=== PATIENT | female | born 1960 | race Caucasian/White ===

== ENCOUNTER 2019-12-08 09:30 | Outpatient (CLI) | payer OTHER, SELFPAY ==
--- NOTE | ~2019-12-08 | MM_ITS ---
EXAMINATION: MM screening lisset BI w salud HISTORY: Screening TECHNIQUE: Craniocaudal and mediolateral oblique 3-D tomosynthesis images were obtained and synthetic 2-D images were generated. CAD analysis was submitted and interpreted. COMPARISON: Comparison to multiple prior studies sequentially, with oldest reviewed study dated 04/2014. BREAST PARENCHYMAL COMPOSITION: The breasts are heterogeneously dense, which may obscure small masses . FINDINGS: There is no evidence of suspicious mass, calcification, or architectural distortion to sugg est malignancy in either breast. There has been no suspicious interval change. IMPRESSION: 1. No mammographic evidence of malignancy. 2. Recommend routine screening mammography in one year. BI-RADS Category 1: Negative Reviewed, dictated and finalized at location A.
== END 2019-12-08 09:31 | disposition home or self-care (01) ==
PROVIDERS: PCP Obstetrics & Gynecology; Visit Provider Obstetrics & Gynecology
DX: Z12.31 Encounter for screening mammogram for malignant neoplasm of breast (principal)
CPT/HCPCS: 77063; 77067

== ENCOUNTER 2020-01-08 06:59 | Outpatient (CLI) | payer OTHER, SELFPAY ==
[2020-01-08 07:37] LABS: Hematocrit 42.4 % (37.0-47.0); Mean Platelet Volume 9.8 fl (7.4-10.4); Platelet Count Result 255 k/mm3 (150-375); Red Blood Count 4.51 M/mm3 (4.2-5.4); Red Cell Distribution Width 12.6 % (11.5-14.5); White Blood Count 4.8 K/mm3 (4.5-10.0)
[2020-01-08 07:46] LABS: Alanine Aminotransferase 19 U/L (4-35); Albumin Level 4.6 g/dL (3.5-5.1); Alkaline Phosphatase 77 U/L (38-126); Anion Gap 7 mmol/L (8-16); Aspartate Amino Transferase 28 U/L (14-36); Bilirubin,Total 0.5 mg/dL (0.2-1.3); Blood Urea Nitrogen 13 mg/dL (7-17); Calcium 9.3 mg/dL (8.4-10.2); Carbon Dioxide 33 mmol/L (22-30); Chloride 103 mmol/L (98-107); Cholesterol 217 mg/dL (0-200); Estimated Glomerular Filt Rate > 60; Glucose 98 mg/dL (65-105); HDL Direct 106 mg/dL; Potassium 4.1 mmol/L (3.4-5.0); Sodium 143 mmol/L (137-145); Triglycerides 65 mg/dL (<150)
[2020-01-08 07:57] LABS: LDL Cholesterol Direct 87 mg/dL
[2020-01-14 08:24] LABS: FSH 116.9 mIU/mL (***); LH 32.7 mIU/mL (***)
[2020-01-14 18:43] LABS: Estradiol, Ultrasensitive 6 pg/mL
== END 2020-01-08 07:00 | disposition home or self-care (01) ==
LOC: ANHLAB 07:01
PROVIDERS: PCP Obstetrics & Gynecology; Visit Provider Obstetrics & Gynecology
DX: N95.1 Menopausal and female climacteric states (principal)
CPT/HCPCS: 36415; 80053; 80061; 82306; 82670; 83001; 83002; 84443; 85027

== ENCOUNTER 2020-09-24 11:27 | Emergency (ER) | payer OTHER, SELFPAY ==
[2020-09-24 11:37] VITALS: BP 140/65; PULSE 80; RESP 16; TEMP 36.2; O2SAT 100
--- NOTE | 2020-09-24 13:10 | ED.EYEPROB ---
HPI - Eye Problem General Chief complaint: Eye Problems Stated complaint: something in eye Time Seen by Provider: 09/24/20 12:14 Source: patient Mode of arrival: ambulatory Limitations: no limitations History of Present Illness HPI Narrative: 59-year-old female Has been backing stuff up and getting ready to move and thinks she got something in her left eye There is a foreign body sensation and tearing and a little injection and it was resistant to her efforts to irrigate it out at home No visual disturbance Related Data Allergies Allergy/AdvReac Type Severity Reaction Status Date / Time No Known Allergies Allergy Mild Verified 09/24/20 11:36 Review of Systems Eyes: Eyes: Reports no additional eye complaints, Denies change in vision and Reports photophobia ENT: Denies epistaxis and Denies nasal congestion Allergic/Immunologic: Allergic/Immunologic: Denies lip swelling, Denies throat swelling and Denies tongue swelling PMF Family History Family History (Updated 12/02/13 @ 07:13 by DOCTOR UNKNOWN) Father Hypertension Other Cerebrovascular accident Social History Social History (Updated 02/10/20 @ 14:21 by Tiffany Mccoy) Smoking status: Former smoker Alcohol intake: current Gender identity (if verbalized by the patient): Female Exam Const: General: alert Orientation/consciousness: patient oriented x3 HENMT: Head: normal to inspection Eyes: Pupils: Equal, round and reactive pupils present Other: Mild injection left conjunctiva Fluorescein staining is negative There is a tiny foreign body found under the upper lid when it was everted that was removed with a cotton swab and she reported feeling more comfortable after that Resp: Effort & Inspection: normal respiratory effort and not labored Neuro: General: patient oriented x3 Speech: normal speech Course Vital Signs Vital signs: Vital Signs Temperature 36.2 C L 09/24/20 11:37 Pulse Rate 80 09/24/20 11:37 Respiratory Rate 16 09/24/20 11:37 Blood Pressure 140/65 09/24/20 11:37 Pulse Oximetry 100 09/24/20 11:37 Temperature 36.2 C L 09/24/20 11:37 Pulse Rate 80 09/24/20 11:37 Respiratory Rate 16 09/24/20 11:37 Blood Pressure 140/65 09/24/20 11:37 Pulse Oximetry 100 09/24/20 11:37 Discharge Plan Discharge Clinical Impression: Foreign body of conjunctiva, left Patient Disposition: Home, Self-Care Condition: Stable Instructions: Eye Foreign Body (ED) Additional Instructions: He is antibiotic ointment if there is any persistent redness or irritation after a couple of hours Follow with your service coordinator elderly facility if needed for persistent symptoms Prescriptions: New erythromycin 5 mg/gram (0.5 %) ointment 1 applic LEFT EYE TID Qty: 1 RF: 0 Follow-up/Referrals: Ab Tamez MD [Primary Care Provider] -
[2020-09-24 13:37] VITALS: BP 128/83; PULSE 69; RESP 18; O2SAT 100
== END 2020-09-24 13:30 | disposition home or self-care (01) ==
PROVIDERS: Emergency Provider Emergency Medicine; PCP Obstetrics & Gynecology
DX: T15.12XA Foreign body in conjunctival sac, left eye, initial encounter (principal); Z87.891 Personal history of nicotine dependence
CPT/HCPCS: 65205; 99283; A9270

== ENCOUNTER 2021-01-18 08:34 | Outpatient (CLI) | payer OTHER, SELFPAY ==
--- NOTE | ~2021-01-18 | MM_ITS ---
EXAMINATION: MM screening lisset BI w salud HISTORY: Screening TECHNIQUE: Craniocaudal and mediolateral oblique 3-D tomosynthesis images were obtained and synthetic 2-D images were generated. CAD analysis was submitted and interpreted. COMPARISON: Comparison to multiple prior studies sequentially, with oldest reviewed study dated 10/24. BREAST PARENCHYMAL COMPOSITION: The breasts are heterogeneously dense, which may obscure small masses . FINDINGS: There is no evidence of suspicious mass, calcification, or architectural distortion to sugg est malignancy in either breast. There has been no suspicious interval change. IMPRESSION: 1. No mammographic evidence of malignancy. 2. Recommend routine screening mammography in one year. BI-RADS Category 1: Negative Reviewed, dictated and finalized at location A.
== END 2021-01-18 08:35 | disposition home or self-care (01) ==
PROVIDERS: PCP Obstetrics & Gynecology; Visit Provider Obstetrics & Gynecology
DX: Z12.31 Encounter for screening mammogram for malignant neoplasm of breast (principal)
CPT/HCPCS: 77063; 77067

== ENCOUNTER 2021-02-16 07:21 | Outpatient (CLI) | payer OTHER, SELFPAY ==
[2021-02-16 19:41] LABS: Hematocrit 44.4 % (37.0-47.0); Hemoglobin 14.4 g/dL (12.0-15.0); Mean Corpuscular HGB Conc 32.4 g/dl (32-36); Mean Corpuscular Hemoglobin 32.4 pg (26-34); Mean Corpuscular Volume 99.8 fl (80-100); Mean Platelet Volume 10.6 fl (7.4-10.4); Platelet Count Result 250 k/mm3 (150-375); Red Blood Count 4.45 M/mm3 (4.2-5.4); Red Cell Distribution Width 12.8 % (11.5-14.5); White Blood Count 5.8 K/mm3 (4.5-10.0)
[2021-02-16 19:56] LABS: Alanine Aminotransferase 19 U/L (4-35); Albumin Level 4.6 g/dL (3.5-5.1); Alkaline Phosphatase 82 U/L (38-126); Anion Gap 5 mmol/L (8-16); Aspartate Amino Transferase 30 U/L (14-36); Bilirubin,Total 0.6 mg/dL (0.2-1.3); Blood Urea Nitrogen 15 mg/dL (7-17); Calcium 9.9 mg/dL (8.4-10.2); Carbon Dioxide 33 mmol/L (22-30); Chloride 103 mmol/L (98-107); Cholesterol 227 mg/dL (0-200); Estimated Glomerular Filt Rate > 60; Glucose 109 mg/dL (65-110); Potassium 4.5 mmol/L (3.4-5.0); Sodium 141 mmol/L (137-145); Triglycerides 68 mg/dL (<150)
[2021-02-16 20:00] LABS: LDL Cholesterol Direct 92 mg/dL
[2021-02-16 20:04] LABS: Vitamin D 25 Hydroxy 75.1 ng/mL
[2021-02-16 20:41] LABS: HDL Direct 130 mg/dL
== END 2021-02-16 07:22 | disposition home or self-care (01) ==
LOC: ANHASCLAB 07:26
PROVIDERS: PCP Obstetrics & Gynecology; Visit Provider Obstetrics & Gynecology
DX: N95.1 Menopausal and female climacteric states (principal)
CPT/HCPCS: 36415; 80053; 80061; 82306; 84443; 85014; 85018; 85027

== ENCOUNTER 2022-02-01 07:02 | Outpatient (CLI) | payer OTHER, SELFPAY ==
[2022-02-01 19:40] LABS: Hematocrit 45.5 % (37.0-47.0); Hemoglobin 14.1 g/dL (12.0-15.0); Mean Corpuscular Hemoglobin 31.1 pg (26-34); Mean Corpuscular Volume 100.4 fl (80-100); Mean Platelet Volume 10.2 fl (7.4-10.4); Platelet Count Result 268 k/mm3 (150-375); Red Blood Count 4.53 M/mm3 (4.2-5.4); Red Cell Distribution Width 13.2 % (11.5-14.5); White Blood Count 6.3 K/mm3 (4.5-10.0)
[2022-02-01 19:47] LABS: Alanine Aminotransferase 29 U/L (6-35); Albumin Level 4.6 g/dL (3.5-5.1); Alkaline Phosphatase 90 U/L (38-126); Anion Gap 10 mmol/L (8-16); Aspartate Amino Transferase 40 U/L (14-36); Bilirubin,Total 0.8 mg/dL (0.2-1.3); Blood Urea Nitrogen 12 mg/dL (7-17); Calcium 9.1 mg/dL (8.4-10.2); Carbon Dioxide 29 mmol/L (22-30); Chloride 102 mmol/L (98-107); Cholesterol 242 mg/dL (0-200); Estimated Glomerular Filt Rate > 60; Glucose 94 mg/dL (65-110); HDL Direct 99 mg/dL; Potassium 4.3 mmol/L (3.4-5.0); Sodium 141 mmol/L (137-145); Triglycerides 73 mg/dL (<150)
[2022-02-01 19:58] LABS: LDL Cholesterol Direct 112 mg/dL
[2022-02-01 20:03] LABS: Vitamin D 25 Hydroxy 52.4 ng/mL
[2022-02-06 19:17] LABS: FSH 135.4 mIU/mL (***); LH 32.6 mIU/mL (***)
[2022-02-07 22:11] LABS: Estradiol, Ultrasensitive 3 pg/mL
== END 2022-02-01 07:03 | disposition home or self-care (01) ==
LOC: ANHASCLAB 07:04
PROVIDERS: PCP Obstetrics & Gynecology; Visit Provider Obstetrics & Gynecology
DX: N95.1 Menopausal and female climacteric states (principal)
CPT/HCPCS: 36415; 80053; 80061; 82306; 82607; 82670; 83001; 83002; 84443; 85027

== ENCOUNTER 2022-02-14 15:38 | Outpatient (CLI) | payer OTHER, SELFPAY ==
--- NOTE | ~2022-02-14 | MM_ITS ---
EXAMINATION: MM screening lisset BI w salud HISTORY: Screening mammogram TECHNIQUE: Craniocaudal and mediolateral oblique 3-D tomosynthesis images were obtained and synthetic 2-D images were generated. CAD analysis was submitted and interpreted. COMPARISON: 01/18/2021, 12/08/2019, 12/02/2018 bilateral screening mammogram examinations BREAST PARENCHYMAL COMPOSITION: There are scattered areas of fibroglandular density.... FINDINGS: There is no evidence of suspicious mass, calcification, or architectural distortion to sugg est malignancy in either breast. There has been no suspicious interval change. IMPRESSION: 1. No mammographic evidence of malignancy. 2. Recommend routine screening mammography in one year. BI-RADS Category 1: Negative Reviewed, dictated and finalized at location A. TECHNICIAN
== END 2022-02-14 15:39 | disposition home or self-care (01) ==
PROVIDERS: PCP Obstetrics & Gynecology; Visit Provider Obstetrics & Gynecology
DX: Z12.31 Encounter for screening mammogram for malignant neoplasm of breast (principal)
CPT/HCPCS: 77063; 77067

== ENCOUNTER 2022-06-05 00:28 | Day surgery (SDC) | payer OTHER, SELFPAY ==
[2022-05-27 15:38] VITALS: BMI 19.4
--- NOTE | 2022-05-27 15:44 | PC.NURSE ---
Report to the Outpatient Waiting Room, entrance under the green pavilion located off [facility], at time 0730 on date 06/05/22. Planned Procedure Time: 0830. Time changes happen often and if your time is changed the preop area will call you the afternoon before. - You and your visitor will be asked to self-screen and do not enter if you have any COVID symptoms. - Only one visitor is requested with a max of two and NO children visitors are allowed at this time. - The patient visitor may be requested to leave or wait in car when not with patient due to distancing restrictions. - A mask is optional within the hospital at this time. Patients may have LIGHT BREAKFAST Take the following medications with a SIP of water the morning of surgery: USUAL DO NOT STOP ANY OF YOUR OTHER PRESCRIPTION MEDICATIONS PRIOR TO SURGERY EXCEPT THE FOLLOWING Medications to discontinue per physician: N/A Date to take last dose: N/A Please no make-up, nail lithuanian, hairspray, perfume, deodorant, or body powder the day of surgery. No jewelry (including any body piercings) or valuables the day of surgery, leave them at home. Please take a shower or bath the night before, or the morning of, surgery with an antibacterial soap. Wear comfortable, loose fitting clothing. - Jewelry must be removed prior to entering the operating room. Rings and piercings that are not removed may be cut off. - The hospital will not accept responsibility for valuables. - Please leave all valuables, including medications, at home the day of surgery. YOU MAY DRIVE YOURSELF HOME AFTER SURGERY. For Pediatric surgeries, we recommend two adults accompany the child home. Follow any additional instructions given to you from your surgeon. If you or anyone in your household have experienced Covid symptoms in the past week, please notify your surgeon or the nurse liaison at the phone number below for possible testing. Telephone instructions given to PT - JANAE SALAZAR and asked if any additional questions and then verbalized understanding. Patient advised to call surgeon office or pre surgery nurse liaison [phone] if any additional questions.
[2022-06-05] VITALS (8 sets, daily range): BP systolic 114–143; BP diastolic 64–81; PULSE 73–88; RESP 16–18; TEMP 37.1; O2SAT 99–100
[2022-06-05] MEDS: LIDO 1%/EPINEPHRINE 1:100,000 20 ML VIAL 5 ML INFILTRATE (07:23)
--- NOTE | 2022-06-05 07:43 | WPDHPUPDATE1 ---
History and Physical Update Update Date/Time: 06/05/22 07:43 History and Physical has been reviewed, including an updated exam of the patient. There are NO changes in the patient's condition. Risks, benefits, and alternatives have been discussed and questions answered. Patient agrees to proceed with procedure.
--- NOTE | 2022-06-05 08:14 | SUR.OPER ---
Frozen section specimen sent with MARY KAY Dobson and received in pathology by Zelda
[2022-06-05] MEDS: BACITRACIN OINTMENT 15 GM TUBE 1 APPLIC TOPICAL (08:48)
--- NOTE | 2022-06-05 08:57 | W.PM.PROC2 ---
Procedure Note - Detailed Date of Procedure 06/05/22 Pre-op Diagnosis Basal Cell Ca Left Scapha Post-op Diagnosis Same Procedure Performed 1 cm excision of BCC left scapha with FS and intermediate repair 1.5 cm. Surgeon Robin Martinez MD Anesthesia Local Indications BCC on biopsy. Findings Margins free. Description of Procedure The site of the biopsy the on the patient's left scaphoid fossa was marked with her consent in the holding area. She was taken to the operating room where she is placed supine on the operating table. Time-out was held and confirmed. Left side of her face and ear were prepped and draped in usual fashion. This area was carefully examined for the extent of any residual tumor. The marking was made as an ellipse surrounding the biopsy site, paralleling the axis of the helix. The area was infiltrated with 1% lidocaine with epinephrine. The ellipse was taken with a 15. C blade along the rim of the helix and extending approximately 5 mm across the scaphoid fossa. The tissue was taken off the cartilage with a 15 C blade. The cephalad tip was marked with a suture for 12:00 o'clock. The specimen was sent to pathology for frozen section. The pathologist revealed that there was no residual basal cell carcinoma but there was evidence of inflammation. The closure was accomplished by undermining the skin 6 mm over the scaphoid fossa. On the helix, skin was also elevated off the cartilage 4 mm. It appeared the skin would approximate easily. There was no need for cartilage removal. The skin was tailored to prevent any overlap. We were able to advance the skin from both sides and close with interrupted 6 0 nylon. The site was dressed with bacitracin ointment only. The patient discharged without prescriptions. Estimated Blood Loss 1 Drains No Packing No Pathology Yes Complications No immediate complications Condition Stable Disposition Same day
== END 2022-06-05 09:06 | disposition home or self-care (01) ==
PROVIDERS: Visit Provider Plastic Surgery
PROC: (CPT 11641; principal; 2022-06-05 07:30)
DX: C44.219 Basal cell carcinoma of skin of left ear and external auricular canal (principal)
CPT/HCPCS: 11641; 12051; 88305; 88331; A9270

== ENCOUNTER 2023-02-14 07:02 | Outpatient (CLI) | payer OTHER, SELFPAY ==
[2023-02-14 18:31] LABS: Hematocrit 48.1 % (37.0-47.0); Hemoglobin 15.4 g/dL (12.0-15.0); Mean Corpuscular Hemoglobin 31.3 pg (26-34); Mean Corpuscular Volume 97.8 fl (80-100); Mean Platelet Volume 10.6 fl (7.4-10.4); Platelet Count Result 256 k/mm3 (150-375); Red Blood Count 4.92 M/mm3 (4.2-5.4); Red Cell Distribution Width 12.8 % (11.5-14.5); White Blood Count 5.5 K/mm3 (4.5-10.0)
[2023-02-14 18:58] LABS: Alanine Aminotransferase 25 U/L (6-35); Albumin Level 4.9 g/dL (3.5-5.1); Alkaline Phosphatase 91 U/L (38-126); Anion Gap 10 mmol/L (8-16); Aspartate Amino Transferase 35 U/L (14-36); Bilirubin,Total 0.9 mg/dL (0.2-1.3); Blood Urea Nitrogen 16 mg/dL (7-17); Calcium 9.9 mg/dL (8.4-10.2); Carbon Dioxide 30 mmol/L (22-30); Chloride 102 mmol/L (98-107); Cholesterol 262 mg/dL (0-200); Estimated Glomerular Filt Rate > 60; Glucose 107 mg/dL (65-110); Potassium 4.2 mmol/L (3.4-5.0); Sodium 142 mmol/L (137-145); Triglycerides 78 mg/dL (<150)
[2023-02-14 19:02] LABS: Vitamin D 25 Hydroxy 44.2 ng/mL
[2023-02-14 19:06] LABS: LDL Cholesterol Direct 109 mg/dL
[2023-02-14 20:49] LABS: HDL Direct 121 mg/dL
[2023-02-18 20:29] LABS: FSH 136.9 mIU/mL (***); LH 26.8 mIU/mL (***)
[2023-02-21 22:11] LABS: Estradiol, Ultrasensitive 2 pg/mL
== END 2023-02-14 07:03 | disposition home or self-care (01) ==
LOC: ANHASCLAB 07:04
PROVIDERS: PCP Obstetrics & Gynecology; Visit Provider Obstetrics & Gynecology
DX: N95.1 Menopausal and female climacteric states (principal)
CPT/HCPCS: 36415; 80053; 80061; 82306; 82607; 82670; 83001; 83002; 84443; 85027

== ENCOUNTER 2023-02-25 15:44 | Outpatient (CLI) | payer OTHER, SELFPAY ==
--- NOTE | ~2023-02-25 | MM_ITS ---
EXAMINATION: MM screening lisset BI w salud HISTORY: Screening mammogram TECHNIQUE: Craniocaudal and mediolateral oblique 3-D tomosynthesis images were obtained and synthetic 2-D images were generated. CAD analysis was submitted and interpreted. COMPARISON: 02/14/2022, 01/18/2021, 12/08/2019 bilateral screening mammogram examinations BREAST PARENCHYMAL COMPOSITION: There are scattered areas of fibroglandular density. FINDINGS: There is no evidence of suspicious mass, calcification, or architectural distortion to sugg est malignancy in either breast. There has been no suspicious interval change. IMPRESSION: 1. No mammographic evidence of malignancy. 2. Recommend routine screening mammography in one year. BI-RADS Category 1: Negative Reviewed, dictated and finalized at location A. ING GUIDE
== END 2023-02-25 15:45 | disposition home or self-care (01) ==
PROVIDERS: PCP Obstetrics & Gynecology; Visit Provider Obstetrics & Gynecology
DX: Z12.31 Encounter for screening mammogram for malignant neoplasm of breast (principal)
CPT/HCPCS: 77063; 77067

== ENCOUNTER 2024-04-09 07:09 | Outpatient (CLI) | payer OTHER, SELFPAY ==
[2024-04-09 18:26] LABS: Hematocrit 43.7 % (37.0-47.0); Hemoglobin 14.2 g/dL (12.0-15.0); Mean Corpuscular HGB Conc 32.5 g/dl (32-36); Mean Corpuscular Hemoglobin 31.5 pg (26-34); Mean Corpuscular Volume 96.9 fl (80-100); Platelet Count Result 231 k/mm3 (150-375); Red Blood Count 4.51 M/mm3 (4.2-5.4); Red Cell Distribution Width 13.4 % (11.5-14.5); White Blood Count 5.3 K/mm3 (4.5-10.0)
[2024-04-09 18:47] LABS: LDL Cholesterol Direct 94 mg/dL
[2024-04-09 18:51] LABS: Vitamin D 25 Hydroxy 44.1 ng/mL
[2024-04-09 18:52] LABS: Alanine Aminotransferase 18 U/L (6-35); Albumin Level 4.8 g/dL (3.5-5.1); Alkaline Phosphatase 91 U/L (38-126); Anion Gap 3 mmol/L (4-12); Aspartate Amino Transferase 28 U/L (14-36); Bilirubin,Total 0.7 mg/dL (0.2-1.3); Blood Urea Nitrogen 13 mg/dL (7-17); Calcium 9.6 mg/dL (8.4-10.2); Carbon Dioxide 31 mmol/L (22-30); Chloride 105 mmol/L (98-107); Cholesterol 277 mg/dL (0-200); Estimated Glomerular Filt Rate > 60; Glucose 101 mg/dL (65-110); Potassium 4.2 mmol/L (3.4-5.0); Sodium 139 mmol/L (137-145); Triglycerides 79 mg/dL (<150)
[2024-04-09 19:42] LABS: HDL Direct 143 mg/dL
[2024-04-10 11:32] LABS: FSH 122.6 mIU/mL; LH 34.1 mIU/mL
== END 2024-04-09 07:10 | disposition home or self-care (01) ==
LOC: ANHASCLAB 07:13
PROVIDERS: PCP Obstetrics & Gynecology; Visit Provider Obstetrics & Gynecology
DX: N95.1 Menopausal and female climacteric states (principal)
CPT/HCPCS: 36415; 80053; 80061; 82306; 82607; 82670; 83001; 83002; 84443; 85027

== ENCOUNTER 2024-04-20 15:44 | Outpatient (CLI) | payer OTHER, SELFPAY ==
--- NOTE | ~2024-04-20 | MM_ITS ---
EXAMINATION: MM screening lisset BI w salud HISTORY: Screening mammogram TECHNIQUE: Craniocaudal and mediolateral oblique 3-D tomosynthesis images were obtained and synthetic 2-D images were generated. CAD analysis was submitted and interpreted. COMPARISON: 02/25/2023, 02/14/2022, 01/18/2021, 12/08/2019 BREAST PARENCHYMAL COMPOSITION:Dense: The breasts are heterogeneously dense, which may obscure small masses. FINDINGS: No suspicious mass, calcification, or architectural distortion are identified in either arsh ast to suggest malignancy. There has been no suspicious interval change. IMPRESSION: No mammographic evidence of malignancy. Recommend routine screening mammography in one year. BI-RADS Category 1: Negative Reviewed, dictated and finalized at location . CLAMPER
== END 2024-04-20 15:45 | disposition home or self-care (01) ==
PROVIDERS: PCP Obstetrics & Gynecology; Visit Provider Obstetrics & Gynecology
DX: Z12.31 Encounter for screening mammogram for malignant neoplasm of breast (principal)
CPT/HCPCS: 77063; 77067